=== PATIENT | male | born 1960 | race Caucasian/White ===

== ENCOUNTER → 2017-08-26 | Outpatient (CLI) | payer OTHER | END | disposition home or self-care (01) | LOC: C.LAB1850 07:56 | PROVIDERS: ATTEND Nurse Practitioner Adult Health | DX: Z00.00 Encounter for general adult medical examination without abnormal findings (principal); Z12.5 Encounter for screening for malignant neoplasm of prostate ==

== ENCOUNTER → 2017-08-27 | Outpatient (CLI) | payer OTHER ==
[2017-08-28 07:23] LABS: HEMOGLOBIN A1C 5.6 % (4.5-5.6)
== END | disposition home or self-care (01) ==
LOC: C.LABBC 10:23
PROVIDERS: ATTEND Nurse Practitioner Adult Health
DX: R73.01 Impaired fasting glucose (principal)

== ENCOUNTER → 2017-08-30 | Outpatient (CLI) | payer OTHER ==
[2017-08-30 16:08] LABS: ALBUMIN 3.9 gm/dl (3.4-5.0); ALT/SGPT 43 U/L (12-78); AST/SGOT 20 U/L (15-37); BLOOD UREA NITROGEN 19 mg/dl (7-18); CALCIUM 9.3 mg/dl (8.5-10.1); CARBON DIOXIDE 27 mmol/L (21-32); CREATININE 1.09 mg/dl (0.60-1.40); GLUCOSE 99 mg/dl (70-99); SODIUM 140 mmol/L (136-145)
[2017-08-30 16:11] LABS: ALKALINE PHOSPHATASE 128 U/L (45-117); TOTAL PROTEIN 7.7 gm/dl (6.4-8.2)
== END | disposition home or self-care (01) ==
LOC: C.LABBC 10:30
PROVIDERS: ATTEND Nurse Practitioner Adult Health
DX: E78.5 Hyperlipidemia, unspecified (principal)

== ENCOUNTER → 2017-09-30 | Outpatient (CLI) | payer OTHER ==
[2017-09-30 10:03] LABS: ALBUMIN 3.8 gm/dl (3.4-5.0); ALKALINE PHOSPHATASE 146 U/L (45-117); ALT/SGPT 63 U/L (12-78); AST/SGOT 36 U/L (15-37); TOTAL PROTEIN 7.9 gm/dl (6.4-8.2)
== END | disposition home or self-care (01) ==
LOC: C.LAB1850 08:06
PROVIDERS: ATTEND Urology
DX: E78.5 Hyperlipidemia, unspecified (principal); N40.0 Benign prostatic hyperplasia without lower urinary tract symptoms

== ENCOUNTER → 2017-10-04 | Outpatient (CLI) | payer OTHER | END | disposition home or self-care (01) | LOC: C.LAB1850 07:53 | PROVIDERS: ATTEND Nurse Practitioner Adult Health | DX: R74.8 Abnormal levels of other serum enzymes (principal) ==

== ENCOUNTER → 2017-10-20 | Outpatient (CLI) | payer OTHER ==
[~2017-10-20] MED LIST: GADAVIST IV PRN
--- NOTE | 2017-10-20 13:44 | DIAGNOSTIC IMAGING REPORT ---
PROSTATE MRI COMBO CLINICAL HISTORY: 57-year-old male with elevated PSA. TECHNIQUE: Multisequence, multiplanar MR imaging of the prostate was performed before and after the intravenous administration of 9 cc of Gadavist IV. Additional postprocessing was performed on a separate [employer] workstation by the radiologist for 3-D volumetric segmentation of the prostate and contouring of region(s) of interest (BRANDEN) for targeting. COMPARISON: None. FINDINGS: Prostate: The prostate measures 5.7 x 5 x 5.6 cm (Dyna[employer] prostate boundary segmentation volume 77.31 mL). Moderate changes of benign prostatic hyperplasia. Precontrast T1 weighted imaging demonstrates no evidence of intrinsic T1 hyperintensity to suggest hemorrhage. Suspicious lesion(s) described below: Lesion (D[employer]CAD BRANDEN) 1: Note is made of a 1.1 x 0.5 x 0.9 cm subtle T2 hypointense focus within the right posterior lateral aspect of the peripheral zone within the mid gland. This demonstrates subtle increased signal intensity on the diffusion-weighted sequence with mildly diminished signal intensity on the ADC sequence. This area demonstrates hypervascularity. No additional suspicious findings are identified on this examination. Marked benign prostatic hyperplasia is noted. Numerous BPH nodules are noted. There are no suspicious findings within the transitional zone. Seminal vesicles normal. Bladder: Normal. Bowel: Visualized portion of the rectum normal. Peritoneum: No free fluid in the pelvis. Lymph nodes: No lymphadenopathy in the visualized portion of the pelvis. Vasculature: Iliac vessels patent. Abdominal wall: Normal. Osseous structures: Normal bone marrow signal intensity. IMPRESSION: 1. 1.1 x 0.5 x 0.9 cm T2 hypointense focus with subtle restricted diffusion within the right posterior lateral aspect of the peripheral zone within the mid gland. This is considered a PI-RADS 3 lesion: indeterminate (the presence of clinically significant cancer is equivocal). This lesion has been segmented for targeted biopsy. 2. Benign prostatic hyperplasia. Electronically signed by: Jeff Riddle M.D. 10/20/2017 1:43 PM Dictated Date/Time: 10/20/2017 10:25 AM
== END | disposition home or self-care (01) ==
LOC: C.MRIBC 08:15
PROVIDERS: ATTEND Urology
DX: N40.0 Benign prostatic hyperplasia without lower urinary tract symptoms (principal)